=== PATIENT | male | born 2005 | race Hispanic/Latino ===

== ENCOUNTER → 2024-11-05 | Day surgery (SDC) | payer BC, OTHER ==
[~2024-11-05] MED LIST: FENTANYL CITRATE/PF 100MCG/2 ML INJ ONE; GLYCOPYRROLATE INJ 0.2 MG/ML VIAL ONE; LIDOCAINE HCL 2% LOCAL INJ 5 ML SDV VIAL INJ ONE; MAGNESIUM OXID400 MG PO; MIDAZOLAM HCL 2 MG/2 ML VIAL ONE; ONDANSETRON HCL INJ 2MG/ML 2ML 2 MG/ML VIAL ONE; PANTOPRAZOLE SO40 MG PO; PROPOFOL IV EMULSION 50 ML IV ONE
[2024-11-05] MEDS: LACTATED RINGER'S 1,000 ML ONE (09:10)
[2024-11-05 11:21] VITALS: TEMP 97.1
[2024-11-05 11:40] VITALS: BP 124/78; PULSE 61; RESP 18; O2SAT 99
== END | disposition home or self-care (01) ==
LOC: OR 08:31
PROVIDERS: ATTEND Internal Medicine Gastroenterology
DX: K29.70 Gastritis, unspecified, without bleeding (principal); K20.90 Esophagitis, unspecified without bleeding; K31.89 Other diseases of stomach and duodenum; K21.9 Gastro-esophageal reflux disease without esophagitis; K85.20 Alcohol induced acute pancreatitis without necrosis or infection; K59.09 Other constipation; Z68.1 Body mass index [BMI] 19.9 or less, adult
CPT/HCPCS: 43239; 43251; J2003; J2250; J2405; J2470; J2704; J3010; J7121